=== PATIENT | female | born 1940 | race Caucasian/White ===

== ENCOUNTER → 2020-05-01 | Outpatient (CLI) | payer OTHER ==
[~2020-05-01] MED LIST: ADULT LOW DOSE81 MG PO; AMITRIPTYLINE H25 M3 PO; AMLODIPINE BESY10 MG PO; ANASPAZ0.125 MG PO; CARDURA4 MG PO; CLARITIN10 M2 PO; COQ-10100 MG PO; COUMADIN 3 MG TA3 MG PO; DIOVAN320 MG PO; HYDROCHLOROTHIA25 M1 PO; IBUPROFEN 800800 M1 PO; KLOR-CON 1010 MEQ PO; LASIX 20 MG TAB20 MG PO; MOBIC15 MG PO; MUCINEX DM TABL1 TA1 PO; NORCO 10-325 T1 EACH; OMEGA-31000 M1 PO; PERCOCET 10-321 EACH PO; SENOKOT-S1 TA1 PO; SYNTHROID75 MCG PO; TURMERIC500 MG PO; VERAPAMIL ER240 MG PO; VITAMIN B COMP1 EACH PO; VITAMIN D1000 UNI1 PO; XARELTO10 MG PO
[2020-05-01 08:43] LABS: CALCIUM 8.9 mg/dL (8.5-10.1); CREATININE 0.9 mg/dL (0.6-1.0); POTASSIUM 4.3 mmol/L (3.5-5.1)
== END ==
LOC: MRI 07:43
PROVIDERS: ATTEND Internal Medicine
DX: M51.26 Other intervertebral disc displacement, lumbar region (principal); M43.17 Spondylolisthesis, lumbosacral region; M48.07 Spinal stenosis, lumbosacral region; M47.816 Spondylosis without myelopathy or radiculopathy, lumbar region

== ENCOUNTER 2021-10-25 17:36 | Emergency (ER) | payer OTHER ==
--- NOTE | ~2021-10-25 | EKG ---
[address] [address] ELECTROCARDIOGRAM REPORT Name: FRANCK JANE Room #: [facility] [id number] Admission: 10/25/21 Attend Phys: Discharge: Date of : 44 Report #: [id number] [facility] ED Test Date: 2021-10-25 Test Time: 18:09:25 Pat Name: FRANCK JANE Department: Room: Gender: F [employer] Engineer: CHRISTINA : 1940 Requested By: Erik Randolph Order Number: [id number] MD: Measurements Intervals [place] Rate: 68 P: 34 [place]: 173 QRS: -2 QRSD: 109 T: 93 QT: 419 QTc: 446 Interpretive Statements Sinus rhythm LVH with secondary repolarization abnormality Compared to ECG 03/25/2016 08:26:32 No significant changes [email or web address] By: 08 08 Epiphany MD Evan /EPI
[2021-10-25 18:43] LABS: EOSINOPHILS 0.7 % (0.0-3.0); HEMATOCRIT 37.9 % (37.0-47.0); HEMOGLOBIN 12.7 gm/dL (12.0-15.0); LYMPHOCYTES 29.5 % (24.0-44.0); MCH 29.2 pg (26.0-34.0); MCHC 33.5 g/dL (28.0-37.0); MCV 87.2 fL (80.0-100.0); MONOCYTES 9.5 % (1.0-8.0); PLATELET COUNT 196 thou/uL (150-400); POLYS 59.3 % (36.0-66.0); RBC 4.35 mil/uL (4.20-5.00); RDW 13.6 % (10.5-14.5); WBC 6.8 thou/uL (4.0-11.0)
[2021-10-25 18:53] LABS: CALCIUM 9.1 mg/dL (8.5-10.1); CREATININE 1.2 mg/dL (0.6-1.0); POTASSIUM 3.8 mmol/L (3.5-5.1)
[2021-10-25 19:03] LABS: MAGNESIUM 1.9 mg/dL (1.8-2.4)
[2021-10-25 19:53] LABS: URINE BILIRUBIN NEGATIVE (Negative); URINE BLOOD NEGATIVE (Negative); URINE CLARITY CLEAR; URINE COLOR YELLOW; URINE GLUCOSE-RANDOM* NEGATIVE (Negative); URINE KETONES NEGATIVE (Negative); URINE LEUKOCYTES-REFLEX NEGATIVE (Negative); URINE NITRITE-REFLEX NEGATIVE (Negative); URINE PROTEIN (DIPSTICK) NEGATIVE (Negative); URINE UROBILINOGEN 0.2 E.U./dl (0.2-1.0)
[2021-10-25] MEDS ORDERED: VISTARIL 25 MG25 M1 PO (20:59)
[2021-10-25 21:15] VITALS: BP 172/60
== END 2021-10-25 21:00 | disposition home or self-care (01) ==
LOC: ER 17:36
PROVIDERS: Student in an Organized Health Care Education/Training Program
DX: R20.2 Paresthesia of skin (principal); Z20.822 Contact with and (suspected) exposure to COVID-19; I10 Essential (primary) hypertension; F32.9 Major depressive disorder, single episode, unspecified; F41.9 Anxiety disorder, unspecified; K21.9 Gastro-esophageal reflux disease without esophagitis; E78.00 Pure hypercholesterolemia, unspecified; E03.9 Hypothyroidism, unspecified; M19.90 Unspecified osteoarthritis, unspecified site; Z90.710 Acquired absence of both cervix and uterus; Z79.82 Long term (current) use of aspirin; Z79.891 Long term (current) use of opiate analgesic; Z79.899 Other long term (current) drug therapy; Z88.5 Allergy status to narcotic agent; Z88.8 Allergy status to other drugs, medicaments and biological substances; Z88.6 Allergy status to analgesic agent; Z91.041 Radiographic dye allergy status